=== PATIENT | female | born 1970 | race Caucasian/White ===

== ENCOUNTER 2017-02-12 09:57 | Day surgery (SDC) | payer BC ==
[2017-02-05 13:16] VITALS: BMI 39.6
--- NOTE | 2017-02-12 08:36 | P.GSHP ---
History of Present Illness H&P Date: 02/12/17 DATE OF SERVICE: 02/12/2017 CHIEF COMPLAINT: Bariatric assessment. HISTORY OF PRESENT ILLNESS: Oksana Ring is a 46-year-old female with history of adjustable gastric band done in [place], [place]. Her highest weight was 222 pounds. For her 4 feet frame, her ideal body weight is 123 pounds. Today she comes in weighing 198 pounds. She reports severe gastroesophageal reflux disease. She has gained actually 8 pounds. She is at least 75 pounds overweight. As she reports intolerance to her adjustable gastric band despite adjustments, now she presents for further evaluation and management with removal of her band. PAST MEDICAL HISTORY: 1. Morbid obesity. 2. Osteoarthritis. 3. Gastroesophageal reflux disease. PAST SURGICAL HISTORY: 1. Adjustable gastric band placed with revision. 2. Bladder suspension. 3. . 4. Tonsillectomy. MEDICATIONS: 1. Prilosec. 2. Multivitamin. ALLERGIES: Denies. SOCIAL HISTORY: Lifelong nontobacco user. No illicit drug use. FAMILY HISTORY: Pertinent for morbid obesity. REVIEW OF SYSTEMS: CONSTITUTIONAL: Marydel body weight of 123 pounds. She is 71 pounds overweight. Highest weight of 222 pounds. Maintained weight loss of 28 pounds. Percent excess weight loss maintained at 28%. Body mass index reduced from 44.2 down to 38.7. GASTROINTESTINAL: Reports severe gastroesophageal reflux disease. MUSCULOSKELETAL: Reports intermittent osteoarthritis of the lower joints and back. HEENT: No troubles with vision or hearing. Has dysphagia to fibrous foods. CARDIOVASCULAR: No reports of chest pain, heart attack or palpitations. RESPIRATORY: Denies any active obstructive sleep apnea. No reports of dyspnea on exertion. NEURO: No reports of stroke or seizure disorder. PSYCH: No reports of active depression or suicidal ideation. HEMATOLOGIC: Denies any previous DVTs or pulmonary embolisms. No reports of easy bruising or bleeding. PHYSICAL EXAM: VITAL SIGNS: 98.4, 73, 16, 129/83, 4 feet , 194 pounds. Body mass index 38.7. ABDOMEN: Soft protuberant. No peritonitis. GENERAL: Well developed female in no acute distress. HEENT: No sclerae icterus. Extraocular movements intact. Moist buccal mucosa. NECK: Supple. No lymphadenopathy. CHEST: Nonlabored respirations with equal breath excursions. CARDIOVASCULAR: Regular rate and rhythm. MUSCULOSKELETAL: No clubbing, cyanosis, or edema. NEUROLOGICAL: No focal or lateralizing signs. Cranial nerves II through XII grossly within normal limits. PSYCH: Appropriate affect. Alert and oriented to person, place, and time. ASSESSMENT: 1. Morbid obesity due to excess calories. 2. Body mass index reduced from 44.1 down to 39.7 3. History of adjustable gastric band. 4. Complications from adjustable gastric band. 5. Severe gastroesophageal reflux disease medically refractory to treatment. 6. Osteoarthritis of the bilateral knees. 7. Osteoarthritis of the lower back. PLAN: 1. Despite adjustments including removing all fluid from her band, she has severe gastroesophageal reflux disease, not controlled with medications. She also reports intolerance to adjustable gastric band and has presented for removal of the adjustable gastric band and all components. Benefits and risks of surgical intervention were described in detail. Also will perform an intraoperative EGD. 2. She will complete her bariatric metabolic panel to identify baseline nutrition. 3. Alternatives for correction of her reflux were reviewed including Danielle-en-Y gastric bypass. Alternatives were also reviewed as well. 4. Recommend deep venous thrombosis prophylaxis. 5. Antibiotic prophylaxis. Past Medical History Past Medical History: GERD/Reflux, Osteoarthritis (OA) Additional Past Medical History / Comment(s): ARTHRITIS IN HANDS, PAST HX OF THYROID PROBLEMS-(HYPO & HYPER). History of Any Multi-Drug Resistant Organisms: None Reported Past Surgical History: Bariatric Surgery, Bladder Surgery, Section, Tonsillectomy Additional Past Surgical History / Comment(s): Lap Band Past Anesthesia/Blood Transfusion Reactions: No Reported Reaction Past Psychological History: No Psychological Hx Reported Smoking Status: Never smoker Past Alcohol Use History: Occasional Past Drug Use History: None Reported - Past Family History Father Family Medical History: Cancer Additional Family Medical History / Comment(s): pancreatic & liver cancer Medications and Allergies Home Medications Medication Instructions Recorded Confirmed Type Nexium (Unknown Dose) 1 tab PO DAILY PRN 02/05/17 02/05/17 History Allergies Allergy/AdvReac Type Severity Reaction Status Date / Time No Known Allergies Allergy Verified 02/05/17 12:50
[~2017-02-12 09:57] MED LIST: ACETAMINOPHEN IV (For NPO) 1,000 MG in EMPTY BAG 1 BAG IVPB ONE; BUPIVACAINE LIPOSOME/PF 1.3% 20 ML, BUPIVACAIN-EPI 0.5%-1:200,000 25 ML, SODIUM CHLORID... MISCELLANE ONE; CHLORHEXIDINE GLUCONATE 15 ML CUP MUCOUS MEM ONE; DEXAMETHASONE SOD PHOSPHATE 10 MG/ML 1 ML VIAL IV ONE; ENOXAPARIN 40 MG/0.4 ML SYRINGE SQ STA; HYDROmorphone 1 MG/ML 1 ML SYRINGE IVP PRN; LIDOCAINE 1% 20 ML VIAL (10MG/ML) FOR IV START INTRADERMA PRN; ONDANSETRON 4 MG/2 ML VIAL IVP ONE; PANTOPRAZOLE 40 MG/10 ML VIAL IV STA; SCOPOLAMINE 1.5MG/72HR PATCH TRANSDERM ONE; ceFAZolin 2 GM in SODIUM CHLORIDE 0.9% 100 ML IVPB ONE
[2017-02-12] MEDS: LACTATED RINGERS 1,000 ML IV SCH ×2 (10:48→15:02)
[2017-02-12] MEDS ORDERED: NEOSTIGMINE 1 MG/ML 10 ML VIAL ONE (10:52)
[2017-02-12] MEDS ORDERED: PROPOFOL 10 MG/ML 20 ML VIAL IV ONE (10:52)
[2017-02-12] MEDS ORDERED: HYDROmorphone (PF) 1 MG/ML ONE (10:52)
[2017-02-12] MEDS ORDERED: SUCCINYLCHOLINE CHLORIDE 100 MG/5 ML SYR IV ONE (10:52)
[2017-02-12] MEDS ORDERED: GLYCOPYRROLATE 0.2 MG/ML 2 ML VIAL ONE (10:52)
[2017-02-12] MEDS ORDERED: MIDAZOLAM 2 MG/2 ML VIAL ONE (10:52)
[2017-02-12] MEDS ORDERED: ROCURONIUM BROMIDE 10 MG/ML 10 ML VIAL IV ONE (10:52)
[2017-02-12] MEDS ORDERED: LIDOCAINE 1% INJ 10MG/ML (20 ML MDV) ONE (10:52)
[2017-02-12] MEDS ORDERED: fentaNYL (PF) 50 MCG/ML 2 ML AMP ONE (10:52)
[2017-02-12 10:55] LABS: Anisocytosis Slight; CHCM 29.9; HCT 33.1 % (34.0-46.0); HDW 2.84; HGB 9.9 gm/dL (11.4-16.0); Hypochromasia Marked; MCH 22.1 pg (25.0-35.0); MCHC 29.9 g/dL (31.0-37.0); Mean Platelet Volume 7.6; Microcytosis Slight; RBC 4.47 m/uL (3.80-5.40); WBC 4.9 k/uL (3.8-10.6)
[2017-02-12 11:07] LABS: ALT 25 U/L (9-52); AST 18 U/L (14-36); Alkaline Phosphatase 84 U/L (38-126); Anion Gap 10 mmol/L; Blood Urea Nitrogen 10 mg/dL (7-17); Calcium 9.4 mg/dL (8.4-10.2); Carbon Dioxide 24 mmol/L (22-30); Chloride 107 mmol/L (98-107); Glucose 83 mg/dL (74-99); Magnesium 1.9 mg/dL (1.6-2.3); Non-African American GFR(MDRD) >60 (>60 ml/min/1.73 sqM); Potassium 4.6 mmol/L (3.5-5.1); Sodium 141 mmol/L (137-145); Total Bilirubin 0.8 mg/dL (0.2-1.3); Total Protein 7.1 g/dL (6.3-8.2)
[2017-02-12 12:33] VITALS: RESP 16; TEMP 97.4
[2017-02-12] MEDS ORDERED: NALOXONE 0.4 MG/ML 1 ML VIAL IV PRN (13:09)
[2017-02-12] MEDS ORDERED: HYDROcodone/APAP 5-325MG 1 EACH TAB PO PRN (13:09)
[2017-02-12] MEDS ORDERED: KETOROLAC 30 MG/ML 1 ML VIAL IVP SCH (13:15)
--- NOTE | 2017-02-12 13:40 | P.PCN ---
Date of Procedure: 02/12/17 Preoperative Diagnosis: Complications from adjustable gastric band, gastroesophageal reflux disease, epigastric abdominal pain,morbid obesity Postoperative Diagnosis: Same, diaphragmatic hiatal hernia Procedure(s) Performed: Laparoscopic removal of adjustable gastric band and all components, intraoperative esophagogastroduodenoscopy Anesthesia: GETA, local (Exparel) Surgeon: Meghana Tanner Estimated Blood Loss (ml): 5 Pathology: other (Antrum) Condition: stable Disposition: floor Operative Findings: Hiatus at 36 cm. Junction at 32 cm. LA grade C erosive esophagitis, diaphragmatic hiatal hernia. Hill grade 4 lower esophageal valve. Uncomplicated removal of gastric band and all components. Gastric prolapse posterior Description of Procedure:
[2017-02-12] MEDS ORDERED: HYDROcodone/APAP 5-325MG 1 EACH TAB PO ONE (14:13)
[2017-02-12 14:51] VITALS: BP 103/69; PULSE 66
[2017-02-12 18:42] LABS: Hemoglobin A1C 5.4 % (4.2-6.1)
[2017-02-13 12:45] LABS: Vitamin D, 1, 25-Dihydroxy 47 pg/mL (20 - 79)
[2017-02-14 18:21] LABS: Selenium 158 mcg/L (63-160)
--- NOTE | 2017-02-24 13:57 | P.OP ---
Date of Procedure: 02/12/17 Description of Procedure: SURGEON: SUNNY LOPEZ MD OUTREACH ANALYST: NONE. PREOPERATIVE DIAGNOSES: 1. Morbid obesity due to excess caloric intake. 2. Body mass index 40. 3. History of adjustable gastric band with complications. 4. Epigastric abdominal pain. 5. Gastroesophageal reflux disease. 6. Osteoarthritis. POSTOPERATIVE DIAGNOSES: 1. Morbid obesity due to excess caloric intake. 2. Body mass index 40. 3. History of adjustable gastric band with complications. 4. Epigastric abdominal pain. 5. Gastroesophageal reflux disease. 6. Osteoarthritis. 7. Gastric prolapse, posterior. OPERATION: 1. Laparoscopic removal of adjustable gastric band and all components. 2. Intraoperative esophagogastroduodenoscopy with cold forceps biopsies along antrum. ANESTHESIA: General with 85 mL Exparel Sensorcaine with epinephrine and normal saline mixture. ESTIMATED BLOOD LOSS: 5 mL SPECIMENS REMOVED: 1. Adjustable gastric band and components 2. Antrum COMPLICATIONS: None. INDICATIONS: The patient is a 57-year-old female who presents with prior history of adjustable gastric band. She reports epigastric abdominal pain including severe and uncontrolled gastroesophageal reflux disease and atypical chest pain from her adjustable gastric band. Clinical features were consistent with gastric prolapse. Surgical options were described including revision versus removal of her band. As she has persistent pain and discomfort from her band, she had elected for removal of the adjustable gastric band and port including all components. Benefits and risks of the procedure were described. Informed consent was obtained. DESCRIPTION: The patient was brought into the operating room and laid in supine position. Preoperatively she had received Peridex oral solution. DVT prophylaxis was administered along with bilateral SCDs and heparin. Patient was brought into the operating room, transferred a split-leg table. After general induction, which was uncomplicated, the abdomen was prepped and draped in standard sterile fashion. The abdomen was prepped and draped in standard sterile fashion using ChloraPrep as well as Ioban draping. Prior to incision, a timeout protocol was confirmed with the surgical team regarding the patient's name, procedure to be performed, including preoperative medications. A transverse incision was made approximately 15 cm distal to the xiphoid off to the left of the midline from his prior cicatrix. A 0 degree 5 mm trocar entry was performed and entered into the peritoneal cavity. The abdomen was insufflated to 15 mmHg pressure, which she tolerated well. Diagnostic laparoscopy demonstrated no hepatomegaly or fatty liver disease. The port was palpated at the lateral left costal margin and the band was found underneath the liver. A 15 mm port was placed along the left costal margin. Next a 5 mm port was placed at the left midclavicular line. The patient was placed in steep reverse Trendelenburg position. The port was followed with its tubing to the actual band. The gastrohepatic ligament was scarred from her prior surgery. The posterior portion of the stomach was prolapsed around the ALLERGAN band. Using electro- Bovie cautery, the cicatrix of the port was incised. The band was then freed. The band was unbuckled and cut. The tubing was cut approximately 5 cm distal to the actual adapter. The band was removed in total without injury to the stomach. Hemostasis was excellent. The port was removed from the abdominal cavity via the 15 mm port. Next, attention was brought to the abdominal wall where the lap band port was palpated. At the midclavicular trocar incision, the incision was extended laterally with a #11 blade. Skin was localized with anesthetic. Electro -Bovie cautery was used to enter the capsule around the port. The sutures were cut and the port was removed in total along with the tubing. The capsule of the port was also excised including all sutures. Diagnostic laparoscopy demonstrated complete removal of all foreign body. I then went to the head of the bed to perform intraoperative esophagogastroduodenoscopy to evaluate for gastritis and any full thickness injury to the stomach. An Olympus gastroscope was passed from the posterior oropharynx down to the esophagus, where the squamocolumnar junction was found LA grade C erosive esophagitis, chronic changes. The stomach was entered and no bile reflux was found. Chronic gastritis was found along the antrum without gastric ulcers. Squamocolumnar junction was found at 32 cm from the incisors. No duodenitis or duodenal ulcers was found. Retroflexion of the scope confirmed a Hill grade 4 lower esophageal valve including diaphragmatic hiatal hernia. The hiatus was found at 36 cm from the incisors. No full-thickness erosion from the band was encountered. No blood was found within the stomach. Mild gastritis with identified and cold forceps biopsies obtained along the antrum. The stomach was desufflated. The patient tolerated the procedure well. No evidence of leak was encountered from the removal of the band. I then went back to the patient's bedside after re-scrubbing. All instruments and pneumoperitoneum were evacuated from the abdominal cavity. The port extraction site was hemostatic. The port site was irrigated using normal saline and hydrogen peroxide approximately, 50 mL. The skin was closed in layers using 0-Vicryl for the deep dermis and subcutaneous tissue. The 15 mm port fascia was over sewn using 0-Vicryl in Anthony Pastor. The rest of the incisions were reapproximated using 4-0 Monocryl in a subcuticular interrupted fashion. Optifoam dressing was placed over the port extraction site along the left upper quadrant to decrease risk for surgical site infection. At the end of the procedure, needle, sponge and instrument count was verified correct by the certified ophthalmic surgical assistant. The patient had tolerated the procedure well. An abdominal binder was placed. The patient was transferred to Postanesthesia Care Unit in stable condition. Postoperative findings were discussed with the patient's family who were pleased with the level of care. FINDINGS: 1. Posterior gastric prolapse. 2. LA grade C erosive esophagitis chronic. 3. Hill grade 4 lower esophageal valve. 4. Diaphragmatic hiatal hernia, 4 cm. 5. Gastritis.
== END 2017-02-12 15:08 | disposition home or self-care (01) ==
LOC: OR 09:57
PROVIDERS: ATTEND Surgery Plastic and Reconstructive Surgery
DX: T85.9XXA Unspecified complication of internal prosthetic device, implant and graft, initial encounter (principal); K21.9 Gastro-esophageal reflux disease without esophagitis; K29.70 Gastritis, unspecified, without bleeding; K22.10 Ulcer of esophagus without bleeding; K31.89 Other diseases of stomach and duodenum; K44.9 Diaphragmatic hernia without obstruction or gangrene; E66.01 Morbid (severe) obesity due to excess calories; Z68.38 Body mass index [BMI] 38.0-38.9, adult; M17.0 Bilateral primary osteoarthritis of knee; M47.896 Other spondylosis, lumbar region; Z79.899 Other long term (current) drug therapy
CPT/HCPCS: 81025; 84255; 82652; 88305; 84425; 80053; 83036; 82525; 83550; 83735; 84100; 84590; 84630; 85027; 88300; 83970; 43774; 43239; J2250; J1100; J2710; J0690; J2405; J2001; J1650; J3010; J1170; J0131; J0330; J2704; C9113

== ENCOUNTER → 2017-02-20 | Outpatient (CLI) | payer BC ==
[2017-02-20 10:49] VITALS: BP 129/77; PULSE 77; RESP 14; TEMP 98.1; BMI 40.7
--- NOTE | 2017-03-20 21:36 | P.PN ---
Progress Note - Text DATE OF SERVICE: 02/20/2017 CHIEF COMPLAINT: Follow-up of band removal. HISTORY OF PRESENT ILLNESS: Oksana Ring is a 46-year-old female status post band removal on 02/12/2017. She is little over a week out. Since removal of her band, her reflux has improved. She reports left flank pain. At her height of 4 feet 112, her ideal body weight is 123 pounds. Her highest weight was 222 pounds. She comes in weighing 205 pounds. She has maintained a 17 pound weight loss. Since [facility] October she has actually gained 10 pounds in 3 months. Body mass index is reduced from 44.2 down to 40.7. Percent excess weight loss is 18%. PHYSICAL EXAM: VITAL SIGNS: 98.1, 77, 14, 129/77, 4 feet 11 1/2 inches, 205 pounds. Body mass index of 40.7. ABDOMEN: Incision clean, dry, and intact. No signs of wound dehiscence. No signs of infection. GENERAL: Well developed female in no acute distress. HEENT: No sclerae icterus. Extraocular movements intact. Moist buccal mucosa. NECK: Supple. No lymphadenopathy. CHEST: Nonlabored respirations with equal breath excursions. CARDIOVASCULAR: Regular rate and rhythm. MUSCULOSKELETAL: No clubbing, cyanosis, or edema. NEUROLOGICAL: No focal or lateralizing signs. Cranial nerves II through XII grossly within normal limits. PSYCH: Appropriate affect. Alert and oriented to person, place, and time. ASSESSMENT: 1. Morbid obesity due to excess calories. 2. Body mass index reduced from 44.2 down to 40.70. 3. History of adjustable gastric band. 4. Complications from adjustable gastric band. 5. Severe gastroesophageal reflux disease medically refractory to treatment. 6. Osteoarthritis of the bilateral knees. 7. Osteoarthritis of the lower back. 8. Vitamin A deficiency. 9. History of kidney stones. 10. Diaphragmatic hiatal hernia. STUDIES: Upper endoscopy demonstrated findings consistent with diaphragmatic hiatal hernia. LABS: Bariatric metabolic panel reviewed, demonstrating hemoglobin 9.9. Hematocrit was low at 33.1. MCH and MCV levels were low. Vitamin A was low at 32. Parathyroid hormone was elevated at 85.7. PLAN: 1. Recommend vitamin D supplement. 2. Would also recommend calcium intake at 1200 mg. 3. She has anemia of unclear etiology whereby iron supplements is advised.
== END | disposition home or self-care (01) ==
LOC: BARWHC3 09:15
PROVIDERS: ATTEND Surgery Plastic and Reconstructive Surgery
DX: Z48.815 Encounter for surgical aftercare following surgery on the digestive system (principal); E66.01 Morbid (severe) obesity due to excess calories; Z68.41 Body mass index [BMI] 40.0-44.9, adult; Z98.84 Bariatric surgery status; T85.9XXA Unspecified complication of internal prosthetic device, implant and graft, initial encounter; K21.9 Gastro-esophageal reflux disease without esophagitis; M17.0 Bilateral primary osteoarthritis of knee; M47.896 Other spondylosis, lumbar region; E50.9 Vitamin A deficiency, unspecified; K44.9 Diaphragmatic hernia without obstruction or gangrene; Z87.442 Personal history of urinary calculi; D64.9 Anemia, unspecified
CPT/HCPCS: 99211